=== PATIENT | female | born 1965 | race American Indian/Alaskan Native ===

== ENCOUNTER 2016-12-08 13:02 | Emergency (ER) | payer OTHER ==
[2016-12-08 13:03] VITALS: BMI 23.6
[2016-12-08 13:38] VITALS: BP 96/64; PULSE 60; RESP 16; TEMP 97; O2SAT 99
--- NOTE | 2016-12-08 14:14 | ED PDOC ---
HPI: Female Pain Time Seen by Provider: 12/08/16 13:38 Chief Complaint (Nursing): Female Genitourinary Chief Complaint (Provider): Female Genitourinary History Per: Patient History/Exam Limitations: no limitations Onset/Duration Of Symptoms: Days (x7) Current Symptoms Are (Timing): Still Present Additional Complaint(s): Venus Medina is a 51 year old female with a history of kidney stones that presents to the ED with a chief complaint of right-sided flank pain that radiates down her right leg and associated nausea, headache, and increased lethargy that she has been experiencing for the past week. She has not taken any medication in an attempt to relieve her pain. Patient states that her current symptoms seem different from those she typically experiences when passing a kidney stone. Past Medical History Reviewed: Historical Data, Nursing Documentation, Vital Signs Vital Signs: Last Vital Signs Temp 97 F L 12/08/16 13:36 Pulse 60 12/08/16 13:36 Resp 16 12/08/16 13:36 BP 96/64 L 12/08/16 13:36 Pulse Ox 99 12/08/16 13:36 - Medical History PMH: Hypothyroidism, Kidney Stones (2013) - Surgical History Surgical History: Denies: Pacemaker - Family History Family History: States: Stroke (mother) - Home Medications Home Medications: Ambulatory Orders Medication Instructions Recorded Ascorbic Acid/Bioflavonoid 1 tab PO DAILY 09/24/13 [Vitamin C] Garlic 1 tab PO DAILY 09/24/13 Levothyroxine Sodium 75 mcg PO DAILY 09/24/13 [Levothyroxine] Loratadine [Claritin] 10 mg PO DAILY 09/24/13 Cephalexin [cephalexin] 500 mg PO BID #14 cap 07/06/15 Cyclobenzaprine [Cyclobenzaprine 10 mg PO TID #20 tab 12/08/16 HCl] Ibuprofen [Motrin] 600 mg PO Q6 #20 tab 12/08/16 - Allergies Allergies/Adverse Reactions: Allergies Allergy/AdvReac Type Severity Reaction Status Date / Time Sulfa (Sulfonamide Allergy RASH Verified 07/06/15 03:58 Antibiotics) Review of Systems Constitutional: Positive for: Other (Patient states that she feels tired) Gastrointestinal: Positive for: Nausea Musculoskeletal: Positive for: Back Pain (right-sided, lower back, radiates down to her right leg) Neurological: Positive for: Headache Physical Exam - Reviewed Nursing Documentation Reviewed: Yes Vital Signs Reviewed: Yes - Physical Exam Appears: Positive for: Non-toxic, No Acute Distress Head Exam: Positive for: ATRAUMATIC, NORMOCEPHALIC Skin: Positive for: Normal Color, Warm Eye Exam: Positive for: Normal appearance, EOMI, PERRL Back: Negative for: Normal Inspection (right flank tenderness), L CVA Tenderness , R CVA Tenderness Neurologic/Psych: Positive for: Alert, Oriented. Negative for: Motor/Sensory Deficits - Laboratory Results Result Diagrams: 12/08/16 14:50 12/08/16 14:50 - ECG O2 Sat by Pulse Oximetry: 99 (RA) Pulse Ox Interpretation: Normal Medical Decision Making Medical Decision Making: Impression: Kidney Stone/UTI Pt declined analgesics at this time. Plan: * CMP * CBC * Urine Dipstick * Urinalysis * Reevaluation 14:30 Urine dip negative for blood, nitrates, and leukocytes. Labs resulted and reviewed with Pt who demonstrated full understanding. Scribe Attestation: Documented by Yvonne Mayfield, acting as a scribe for Kalee Redmond PA-C. Provider Scribe Attestation: All medical record entries made by the Scribe were at my direction and personally dictated by me. I have reviewed the chart and agree that the record accurately reflects my personal performance of the history, physical exam, medical decision making, and the department course for this patient. I have also personally directed, reviewed, and agree with the discharge instructions and disposition. Disposition - Clinical Impression Clinical Impression: Flank pain - Patient ED Disposition Is Patient to be Admitted: No - Disposition Disposition: Routine/Home Disposition Time: 16:53 Condition: STABLE Prescriptions: Cyclobenzaprine [Cyclobenzaprine HCl] 10 mg PO TID #20 tab Ibuprofen [Motrin] 600 mg PO Q6 #20 tab Instructions: Flank Pain (ED) Forms: [facility] [facility] (Malawian)
[2016-12-08 14:32] LABS: URINE BILIRUBIN NEGATIVE (NEGATIVE); URINE BLOOD NEGATIVE (NEGATIVE); URINE COLOR STRAW (YELLOW); URINE GLUCOSE (UA) NEG (Normal); URINE KETONE NEGATIVE (NEGATIVE); URINE LEUKOCYTE ESTERASE NEG Leu/uL (Negative); URINE PROTEIN NEGATIVE (NEGATIVE); URINE UROBILINOGEN 0.2-1.0 mg/dL (0.2-1.0); WBC URINE < 1 /hpf (0-5)
[2016-12-08 14:58] LABS: BASO # 0.1 K/uL (0.0-0.2); BASO % 1.4 % (0.0-2.0); EOS # 0.1 K/uL (0.0-0.7); EOS % 2.4 % (0.0-4.0); HEMATOCRIT 37.2 % (34.0-47.0); LYMPH # 2.3 K/uL (1.0-4.3); LYMPH % 54.7 % (20.0-40.0); MEAN CELL VOLUME 82.9 fl (81.0-99.0); MEAN CORPUSCULAR HEMOGLOBIN 27.4 pg (27.0-31.0); MEAN PLATELET VOLUME 9.4 fl (7.2-11.7); MONO # 0.4 K/uL (0.0-0.8); MONO % 10.3 % (0.0-10.0); NEUT # 1.3 K/uL (1.8-7.0); NEUT % 31.2 % (50.0-75.0); NRBC % 0.2 % (0.0-0.0); RED CELL DISTRIBUTION WIDTH 14.4 % (11.5-14.5); WHITE BLOOD COUNT 4.3 K/uL (4.8-10.8)
[2016-12-08 15:16] LABS: ALB/GLOB RATIO 1.2 (1.0-2.1); ALKALINE PHOSPHATASE 55 U/L (38-126); ALT/SGPT 54 U/L (9-52); AST/SGOT 37 U/L (14-36); BILIRUBIN,TOTAL 0.6 mg/dl (0.2-1.3); BLOOD UREA NITROGEN 14 mg/dl (7-17); CALCIUM 9.2 mg/dL (8.4-10.2); CARBON DIOXIDE 27 mmol/L (22-30); CHLORIDE 104 mmol/L (98-107); GFR AFRICAN-AMERICAN > 60; GLUCOSE,RANDOM 107 mg/dL (65-105); SODIUM 140 mmol/l (132-148); TOTAL PROTEIN 7.6 G/DL (6.3-8.2)
== END 2016-12-08 17:16 | disposition home or self-care (01) ==
LOC: H.ER 13:02
DX: E03.9 Hypothyroidism, unspecified (principal); Z87.442 Personal history of urinary calculi

== ENCOUNTER 2017-02-25 00:20 | Emergency (ER) | payer OTHER ==
[2017-02-25 00:20] VITALS: BMI 23.6
[2017-02-25 00:32] VITALS: BP 107/69; PULSE 74; RESP 18; TEMP 98.4; O2SAT 97
--- NOTE | 2017-02-25 00:58 | ED PDOC ---
HPI: Female Pain Time Seen by Provider: 02/25/17 00:20 Chief Complaint (Nursing): Female Genitourinary Chief Complaint (Provider): Kidney Stones/UTI History Per: Patient History/Exam Limitations: no limitations Onset/Duration Of Symptoms: Days (x7) Current Symptoms Are (Timing): Still Present Additional Complaint(s): Venus Tubbs is a 51 year old female with a history of UTI and kidney stones that presents to the ED with a chief complaint of right-sided flank pain with associated fever and headache that she has been experiencing for the past 7 days. Patient reports that she is currently on a 14-day course of Ciprofloxacin for a UTI, and she still had a "few pills left." She denies any hematuria or pain with urination. Past Medical History Reviewed: Historical Data, Nursing Documentation, Vital Signs Vital Signs: Last Vital Signs Temp 98.4 F 02/25/17 00:29 Pulse 74 02/25/17 00:29 Resp 18 02/25/17 00:29 BP 107/69 02/25/17 00:29 Pulse Ox 97 02/25/17 00:29 - Medical History PMH: Hypothyroidism, Kidney Stones (2013) Other PMH: UTIs - Surgical History Surgical History: Denies: Pacemaker - Family History Family History: States: Stroke (mother) - Social History Current smoker - smoking cessation education provided: No Alcohol: None Drugs: Denies - Home Medications Home Medications: Ambulatory Orders Medication Instructions Recorded Ascorbic Acid/Bioflavonoid 1 tab PO DAILY 09/24/13 [Vitamin C] Garlic 1 tab PO DAILY 09/24/13 Levothyroxine Sodium 75 mcg PO DAILY 09/24/13 [Levothyroxine] Loratadine [Claritin] 10 mg PO DAILY 09/24/13 Cephalexin [cephalexin] 500 mg PO BID #14 cap 07/06/15 Cyclobenzaprine [Cyclobenzaprine 10 mg PO TID #20 tab 12/08/16 HCl] Ibuprofen [Motrin] 600 mg PO Q6 #20 tab 12/08/16 - Allergies Allergies/Adverse Reactions: Allergies Allergy/AdvReac Type Severity Reaction Status Date / Time Sulfa (Sulfonamide Allergy RASH Verified 02/25/17 00:28 Antibiotics) Review of Systems Constitutional: Positive for: Fever Genitourinary Female: Negative for: Hematuria, Other (Denies pain with urination ) Musculoskeletal: Positive for: Back Pain (right-sided flank pain) Neurological: Positive for: Headache Physical Exam - Reviewed Nursing Documentation Reviewed: Yes Vital Signs Reviewed: Yes - Physical Exam Appears: Positive for: Non-toxic, No Acute Distress Head Exam: Positive for: ATRAUMATIC, NORMOCEPHALIC Skin: Positive for: Normal Color, Warm Eye Exam: Positive for: Normal appearance, EOMI, PERRL Cardiovascular/Chest: Positive for: Regular Rate, Rhythm. Negative for: Murmur Respiratory: Positive for: Normal Breath Sounds. Negative for: Wheezing Gastrointestinal/Abdominal: Positive for: Normal Exam, Soft. Negative for: Tenderness Back: Positive for: R CVA Tenderness (Mild right CVA tenderness). Negative for : Normal Inspection Extremity: Positive for: Normal ROM. Negative for: Tenderness, Pedal Edema Neurologic/Psych: Positive for: Alert, Oriented. Negative for: Motor/Sensory Deficits - Laboratory Results Result Diagrams: 02/25/17 02:04 02/25/17 02:04 - ECG O2 Sat by Pulse Oximetry: 97 (RA) Pulse Ox Interpretation: Normal Medical Decision Making Medical Decision Making: Impression: UTI Plan: * Urine C&S * Urinalysis * Toradol 30 mL IV * NaCl 1000 mLs at 150 mLs/hr * Reevaluation 2:25 Labs reviewed, lymph% slightly elevated. Patient noted UTI on urine dip, however , patient has known history of UTI that she is currently on medication for. Will give one dose of Rocephin on IV. 2:37 Patient reports feeling better, is stable for discharge home. Scribe Attestation: Documented by Yvonne Mayfield, acting as a scribe for Hilario Morgan MD. Provider Scribe Attestation: All medical record entries made by the Scribe were at my direction and personally dictated by me. I have reviewed the chart and agree that the record accurately reflects my personal performance of the history, physical exam, medical decision making, and the department course for this patient. I have also personally directed, reviewed, and agree with the discharge instructions and disposition. Disposition - Clinical Impression Clinical Impression: UTI (urinary tract infection) - Patient ED Disposition Is Patient to be Admitted: No Counseled Patient/Family Regarding: Studies Performed, Diagnosis, Need For Followup - Disposition Disposition: Routine/Home Disposition Time: 01:40 Condition: IMPROVED Additional Instructions: follow up with your primary doctor in 1-2 days return to the ED with any worsening or concerning symptoms Instructions: Urinary Tract Infection in Women (ED) Forms: [facility] (German)
[2017-02-25] MEDS ORDERED: Sodium Chloride 0.9% 1,000 ML IV STA (01:32)
[2017-02-25 02:07] LABS: BASO % 0.8 % (0.0-2.0); EOS # 0.1 K/uL (0.0-0.7); EOS % 2.4 % (0.0-4.0); HEMATOCRIT 37.4 % (34.0-47.0); LYMPH # 2.3 K/uL (1.0-4.3); LYMPH % 41.1 % (20.0-40.0); MEAN CELL VOLUME 84.6 fl (81.0-99.0); MEAN CORPUSCULAR HEMOGLOBIN 26.7 pg (27.0-31.0); MEAN CORPUSCULAR HGB CONC 31.6 g/dL (33.0-37.0); MEAN PLATELET VOLUME 9.4 fl (7.2-11.7); MONO # 0.8 K/uL (0.0-0.8); MONO % 13.5 % (0.0-10.0); NEUT # 2.4 K/uL (1.8-7.0); NEUT % 42.2 % (50.0-75.0); NRBC % 0.2 % (0.0-0.0); WHITE BLOOD COUNT 5.6 K/uL (4.8-10.8)
[2017-02-25 02:15] LABS: ALB/GLOB RATIO 1.2 (1.0-2.1); ALKALINE PHOSPHATASE 66 U/L (38-126); ALT/SGPT 57 U/L (9-52); AST/SGOT 38 U/L (14-36); BILIRUBIN,TOTAL 0.3 mg/dl (0.2-1.3); BLOOD UREA NITROGEN 13 mg/dl (7-17); CALCIUM 8.8 mg/dL (8.4-10.2); CARBON DIOXIDE 32 mmol/L (22-30); CHLORIDE 104 mmol/L (98-107); GFR AFRICAN-AMERICAN > 60; GLUCOSE,RANDOM 89 mg/dL (65-105); POTASSIUM 4.3 MMOL/L (3.6-5.0); SODIUM 144 mmol/l (132-148); TOTAL PROTEIN 7.4 G/DL (6.3-8.2)
[2017-02-25] MEDS ORDERED: cefTRIAXone IV 1 gm in Dextros 50 ML IVPB STA (02:24)
[2017-02-25] MEDS ORDERED: cefTRIAXone IV 1 gm in Dextros 50 ML IVPB ONE (02:38)
[2017-02-25 02:52] LABS: RBC URINE 1 /hpf (0-3); URINE BACTERIA RARE (<OCC); URINE BILIRUBIN NEGATIVE (NEGATIVE); URINE BLOOD NEGATIVE (NEGATIVE); URINE COLOR YELLOW (YELLOW); URINE GLUCOSE (UA) NEG (Normal); URINE KETONE NEGATIVE (NEGATIVE); URINE LEUKOCYTE ESTERASE SMALL Leu/uL (Negative); URINE PROTEIN 30 mg/dL (NEGATIVE); URINE UROBILINOGEN 0.2-1.0 mg/dL (0.2-1.0); WBC URINE 5 /hpf (0-5)
== END 2017-02-25 03:50 | disposition home or self-care (01) ==
LOC: H.ER 00:20
DX: N39.0 Urinary tract infection, site not specified (principal); Z87.442 Personal history of urinary calculi
CPT/HCPCS: 80053; 81003; 81025; 85025; 87086; 96374; 99284; J0696

== ENCOUNTER 2017-09-26 22:46 | Emergency (ER) | payer OTHER ==
[2017-09-26 22:46] VITALS: BMI 23.6
[2017-09-26 23:02] VITALS: RESP 18
--- NOTE | 2017-09-26 23:22 | ED PDOC ---
HPI: Hypertension/Hypotension Time Seen by Provider: 09/26/17 23:08 Chief Complaint (Nursing): Palpitations Chief Complaint (Provider): palpitations, chest pain, History Per: Patient History/Exam Limitations: no limitations Onset/Duration Of Symptoms: Days, Waxing/Waning Current Symptoms Are (Timing): Still Present Associated Symptoms: Chest Pain, Headache Quality Of Symptoms: Rapid Heart Rate Additional Complaint(s): 52 y/o female history of hypothyroid presents for evaluation of intermittent palpitations and chest pain x 3 days. Associated headache when palpitations present. Patient states she gets urinary tract infections often and finished an antibiotic last month for one, states since then she has been experiencing increased urinary frequency and flank pain. Denies fever, nausea/vomiting, shortness of breath, hematuria, leg pain/swelling, recent travel. Against Medical Advice - AMA Patient Left Against Medical Advice: The patient declines admission to the hospital and wishes to leave the Emergency Department. This action is against my medical advice. This decision was made with informed refusal. The patient was told that admission to the hospital is necessary. Explanation of the reasons why were discussed. The risks of leaving were explained to the patient and include, but are not limited to, worsening of known or currently unknown conditions, permanent disability and from undiagnosed or untreated conditions. The patient has the capacity to make this informed decision and understands my explanation of the current medical problem and risks of leaving. The patient voluntarily accepts these risks and signed an AMA form documenting our conversation. The patient was given the opportunity to ask questions and reconsider. The patient was encouraged to return to the Emergency Department at any time for further care. Past Medical History Reviewed: Historical Data, Nursing Documentation, Vital Signs Vital Signs: Last Vital Signs Temp 98 F 09/26/17 22:58 Pulse 60 09/26/17 22:58 Resp 18 09/26/17 22:58 BP 108/73 09/26/17 22:58 Pulse Ox 98 09/26/17 22:58 - Medical History PMH: Hypothyroidism, Kidney Stones (2013) - Surgical History Surgical History: No Surg Hx Denies: Pacemaker - Family History Family History: States: Stroke (mother) - Home Medications Home Medications: Ambulatory Orders Medication Instructions Recorded Ascorbic Acid/Bioflavonoid 1 tab PO DAILY 09/24/13 [Vitamin C] Garlic 1 tab PO DAILY 09/24/13 Levothyroxine Sodium 75 mcg PO DAILY 09/24/13 [Levothyroxine] Loratadine [Claritin] 10 mg PO DAILY 09/24/13 Cephalexin [cephalexin] 500 mg PO BID #14 cap 07/06/15 Cyclobenzaprine [Cyclobenzaprine 10 mg PO TID #20 tab 12/08/16 HCl] Ibuprofen [Motrin] 600 mg PO Q6 #20 tab 12/08/16 - Allergies Allergies/Adverse Reactions: Allergies Allergy/AdvReac Type Severity Reaction Status Date / Time Sulfa (Sulfonamide Allergy RASH Verified 09/26/17 22:58 Antibiotics) Review of Systems ROS Statement: Except As Marked, All Systems Reviewed And Found Negative Cardiovascular: Positive for: Chest Pain, Palpitations Genitourinary Female: Positive for: Frequency Physical Exam - Reviewed Nursing Documentation Reviewed: Yes Vital Signs Reviewed: Yes - Physical Exam Appears: Positive for: Well, Non-toxic, No Acute Distress Head Exam: Positive for: ATRAUMATIC, NORMAL INSPECTION, NORMOCEPHALIC Skin: Positive for: Normal Color Eye Exam: Positive for: Normal appearance ENT: Positive for: Normal ENT Inspection Cardiovascular/Chest: Positive for: Regular Rate, Rhythm Respiratory: Positive for: Normal Breath Sounds Gastrointestinal/Abdominal: Positive for: Normal Exam Back: Positive for: Normal Inspection. Negative for: L CVA Tenderness, R CVA Tenderness Extremity: Positive for: Normal ROM Neurologic/Psych: Positive for: Alert, Oriented - Laboratory Results Result Diagrams: 09/26/17 23:41 09/26/17 23:41 - ECG ECG: Positive for: Viewed By Wi ECG Rhythm: Positive for: Sinus Rhythm, ST/T Changes O2 Sat by Pulse Oximetry: 98 Pulse Ox Interpretation: Normal - Radiology X-Ray: Viewed By Wi X-Ray Interpretation: No Acute Disease - Progress ED Course And Treament: labs, ekg, chest xray, urine EKG with T wave inversions; no previous for comparison Case discussed with ED attending Dr. Oliva, will placement in observation telemetry Patient educated on findings, states she does not wish to stay in hospital. Patient states she would like to go home and follow up with her primary doctor tomorrow. Patient advised she will need to sign out against medical advice, and risks of doing so. Patient AAOx3, demonstrates full competency in making medical decisions. Return precautions given. Disposition - Clinical Impression Clinical Impression: Palpitations, Chest pain, Left against medical advice - Patient ED Disposition Is Patient to be Admitted: No - Disposition Referrals: Luiz Lock DO [Primary Care Provider] - Disposition: Against Medical Advice Disposition Time: 01:09 Condition: STABLE Instructions: Chest Pain, Palpitations, Leaving Against Medical Advice
[2017-09-26 23:45] LABS: BASO # 0.1 K/uL (0.0-0.2); BASO % 0.8 % (0.0-2.0); EOS # 0.2 K/uL (0.0-0.7); EOS % 2.5 % (0.0-4.0); HEMOGLOBIN 12.3 g/dL (12.0-16.0); LYMPH # 2.3 K/uL (1.0-4.3); LYMPH % 35.9 % (20.0-40.0); MEAN CELL VOLUME 84.5 fl (81.0-99.0); MEAN CORPUSCULAR HEMOGLOBIN 27.6 pg (27.0-31.0); MEAN CORPUSCULAR HGB CONC 32.7 g/dL (33.0-37.0); MEAN PLATELET VOLUME 9.8 fl (7.2-11.7); MONO # 0.7 K/uL (0.0-0.8); MONO % 10.3 % (0.0-10.0); NEUT # 3.3 K/uL (1.8-7.0); NEUT % 50.5 % (50.0-75.0); NRBC % 0.1 % (0.0-0.0); RBC 4.45 Mil/uL (3.80-5.20); RED CELL DISTRIBUTION WIDTH 13.8 % (11.5-14.5); WHITE BLOOD COUNT 6.5 K/uL (4.8-10.8)
[2017-09-26 23:48] LABS: SQUAMOUS EPITHIAL 1 /hpf (0-5); URINE BACTERIA RARE (<OCC); URINE BILIRUBIN NEGATIVE (NEGATIVE); URINE BLOOD NEGATIVE (NEGATIVE); URINE CLARITY CLEAR (Clear); URINE COLOR YELLOW (YELLOW); URINE GLUCOSE (UA) NEG (Normal); URINE LEUKOCYTE ESTERASE NEG Leu/uL (Negative); URINE PROTEIN NEGATIVE (NEGATIVE); URINE UROBILINOGEN 0.2-1.0 mg/dL (0.2-1.0)
[2017-09-26 23:54] LABS: ALB/GLOB RATIO 1.1 (1.0-2.1); ALT/SGPT 50 U/L (9-52); AST/SGOT 31 U/L (14-36); BLOOD UREA NITROGEN 17 mg/dl (7-17); CALCIUM 8.9 mg/dL (8.4-10.2); GFR AFRICAN-AMERICAN > 60; GFR NON-AFRICAN AMERICAN > 60
[2017-09-27 03:22] VITALS: BP 116/76; PULSE 64; TEMP 98.2; O2SAT 99
--- NOTE | 2017-09-27 08:14 | RAD ---
HISTORY: chest pain COMPARISON: No prior. TECHNIQUE: Chest PA and lateral FINDINGS: LUNGS: No active pulmonary disease. PLEURA: No significant pleural effusion identified. No pneumothorax apparent. CARDIOVASCULAR: Normal. OSSEOUS STRUCTURES: No significant abnormalities. VISUALIZED UPPER ABDOMEN: Normal. OTHER FINDINGS: None. IMPRESSION: No acute cardiopulmonary disease appreciated.
--- NOTE | 2017-09-27 13:48 | CARD ---
APPROVED REPORT EKG Measurement Heart [id number] <Conclusion> Normal sinus rhythm Possible Left atrial enlargement ST & T wave abnormality, consider anterior ischemia Abnormal ECG
== END 2017-09-27 01:40 | disposition left against medical advice (07) ==
LOC: H.ER 22:46
DX: R00.2 Palpitations (principal); R07.89 Other chest pain; E03.9 Hypothyroidism, unspecified; I10 Essential (primary) hypertension